=== PATIENT | female | born 1990 | race Caucasian/White ===

== ENCOUNTER 2019-06-26 17:33 | Outpatient (REF) | payer OTHER, SELFPAY ==
--- NOTE | 2019-06-26 16:20 | PAPFT_PTH ---
PATIENT: Yolanda Mcneil LOC: [facility] U#:[id number] AGE/SX: 29/F ROOM: RE06/26/[address]: Jeff Maldonado RN : 1990 BED: DIS: 06/26/2019 SPEC #: [id number] RECD: 06/26/19 17:40 STATUS: RODERICK IVY #: [id number] LIZBETH: 06/26/19 16:[address]: Jeff Maldonado DEPT: [facility] Cytology RECD BY: Sully Ardon ENTERED: 06/26/19 17:40 SP TYPE: PAPFT OT DR: Miroslava Clifton MD Tissues: 1 - CX/ENDOCX FOR PAP SMEARS Procedures: PAP THIN PREP/[facility] Screening Comments: [id number]
== END 2019-06-26 17:53 ==
LOC: LBN 17:33
PROVIDERS: PCP Family Medicine; Visit Provider Advanced Practice Midwife
DX: Z12.4 Encounter for screening for malignant neoplasm of cervix (principal)
CPT/HCPCS: 88142

== ENCOUNTER 2022-01-25 16:17 | Outpatient (REF) | payer BC, SELFPAY ==
--- NOTE | 2022-01-25 15:50 | PAPFT_PTH ---
PATIENT: Yolanda Mcneil LOC: [facility] U#:[id number] AGE/SX: 31/F ROOM: RE01/25/[address]: Tessa Knapp CNM : 1990 BED: DIS: 01/25/2022 SPEC #: [id number] RECD: 01/25/22 16:31 STATUS: RODERICK REQ #: [id number] LIZBETH: 01/25/22 15:[address]: Tessa Knapp DEPT: [facility] Cytology RECD BY: Sully Ardon ENTERED: 01/25/22 16:31 SP TYPE: PAPFT OTHR DR: Unknown,Unknown Tissues: 1 - CX/ENDOCX FOR PAP SMEARS Procedures: PAP THIN PREP/UVM Screening HPV DNA PROBE Comments: [id number]
[2022-01-25 18:58] LABS: *AMPHETAMINES SCREEN URINE Negative (Negative); *BARBITURATES SCREEN URINE Negative (Negative); *BENZODIAZEPINES SCREEN URINE Negative (Negative); Cannabinoids THC Negative (Negative); Cocaine Screen,Urine Negative (Negative); METHADONE URINE SCREEN Negative (Negative); OPIATES URINE SCREEN Negative (Negative); Tricyclic Antidepressants Negative (Negative)
[2022-02-02 10:32] LABS: Buprenorphine Negative ng/mL (Cutoff: 5.0); Norbuprenorphine Negative ng/mL (Cutoff: 2.5)
== END 2022-01-25 16:18 | disposition home or self-care (01) ==
LOC: LBN 16:17
PROVIDERS: Visit Provider Advanced Practice Midwife
DX: Z34.91 Encounter for supervision of normal pregnancy, unspecified, first trimester (principal); Z12.4 Encounter for screening for malignant neoplasm of cervix; Z11.51 Encounter for screening for human papillomavirus (HPV)
CPT/HCPCS: 80307; 88142; 87086; 87624

== ENCOUNTER 2022-01-25 18:30 | Outpatient (REF) | payer BC, SELFPAY ==
[2022-01-27 15:26] LABS: Chlamydia Result Negative (Negative); GC Result Negative (Negative)
== END 2022-01-25 18:31 | disposition home or self-care (01) ==
LOC: LBN 18:30
PROVIDERS: Visit Provider Advanced Practice Midwife
DX: Z34.91 Encounter for supervision of normal pregnancy, unspecified, first trimester (principal)
CPT/HCPCS: 87491; 87591

== ENCOUNTER 2022-01-31 04:18 | Outpatient (CLI) | payer BC, SELFPAY ==
[2022-01-31 10:26] LABS: Abs Immature Grans 0.04 10^3/uL (0.0-0.06); Absolute Basophil Count 0.01 10^3/uL (0.0-0.2); Absolute Eosinophil Count 0.07 10^3/uL (0.0-0.7); Absolute Lymphocyte Count 1.98 10^3/uL (1.2-3.4); Absolute Monocyte Count 0.52 10^3/uL (0.1-0.8); Absolute Neutrophil Count 7.69 10^3/uL (1.2-6.7); Basophils % 0.1; Eosinophils % 0.7; HCT 37.9 % (36.0-46.0); HGB 12.8 g/dL (11.2-15.7); Immature Grans % 0.4; Lymphocytes % 19.2; MCH 28.5 pg (27.0-33.0); MCHC 33.8 % (32.0-36.0); MCV 84.4 fL (80-95); MPV 8.9 fL (8.0-11.0); Neutrophils % 74.6; Nucleated RBC 0 %; Platelet Count 291 10^3/uL (130-400); RBC 4.49 10^6/uL (3.93-5.22); RDW 12.7 % (11.7-14.6); RDW-SD 38.5 fL; WBC 10.31 10^3/uL (4.4-10.8)
[2022-01-31 10:43] LABS: Glucose,1 Hr (Glucola) 69 mg/dL (80-140)
[2022-02-01 09:37] LABS: Hepatitis B Surface Ag Negative (Negative)
[2022-02-01 10:21] LABS: Hepatitis C Ab w Rflx HCV PCR Negative (Negative)
[2022-02-01 10:27] LABS: Rubella IgG Ab (UVM) Positive (See Note); Varicella IgG Antibody Positive (See Note)
[2022-02-01 10:58] LABS: HIV-1/2 Ag & Ab Screen Negative (Negative)
[2022-02-01 20:16] LABS: Syphilis IgG w/Reflex Nonreactive (Nonreactive)
== END 2022-01-31 04:19 | disposition home or self-care (01) ==
LOC: LBO 04:19
PROVIDERS: Visit Provider Advanced Practice Midwife
DX: O30.041 Twin pregnancy, dichorionic/diamniotic, first trimester (principal); Z3A.13 13 weeks gestation of pregnancy
CPT/HCPCS: 36415; 82950; 86787; 86803; 86850; 86900; 86901; 87340; 87389; 85025; 86762; 86780

== ENCOUNTER 2022-02-22 12:36 | Outpatient (CLI) | payer BC, SELFPAY ==
[2022-02-22 13:54] LABS: FREE T4 0.79 ng/dL (0.76-1.46)
== END 2022-02-22 12:37 | disposition home or self-care (01) ==
LOC: LBO 12:38
PROVIDERS: Visit Provider Advanced Practice Midwife
DX: F41.9 Anxiety disorder, unspecified (principal); Z34.92 Encounter for supervision of normal pregnancy, unspecified, second trimester
CPT/HCPCS: 36415; 84439; 84443

== ENCOUNTER 2022-05-09 02:32 | Outpatient (CLI) | payer BC, SELFPAY ==
[2022-05-09 17:19] LABS: Glucose,1 Hr (Glucola) 121 mg/dL (80-140)
== END 2022-05-09 02:33 | disposition home or self-care (01) ==
PROVIDERS: Visit Provider Obstetrics & Gynecology
DX: Z34.92 Encounter for supervision of normal pregnancy, unspecified, second trimester (principal); Z3A.27 27 weeks gestation of pregnancy
CPT/HCPCS: 36415; 82950

== ENCOUNTER 2022-07-11 14:54 | Outpatient (CLI) | payer BC, SELFPAY ==
[2022-07-11 16:04] VITALS: BP 133/82; PULSE 101; TEMP 36.9
[2022-07-11 16:05] VITALS: BP 133/82; PULSE 101
[2022-07-11 16:24] VITALS: BP 133/82; PULSE 101; TEMP 36.9
--- NOTE | 2022-07-11 16:36 | W.OBNST ---
Date of service: 07/11/22 Time of Service: 16:25 NST Evaluation Reason for NST Reasons for Nonstress Test: LABOR Reason for NST Other: rule out labor Gestational Age Gestational Age in Weeks and Days: 36 Weeks and 0Days Test and Monitor Explained Test/Monitor Explained: Test Explained, Monitor Explained and Patient Verbalized Understanding Vital Signs Blood Pressure: 133/82 Pulse: 101 Temperature: 98.4 F NST Information Date on Monitor: 07/11/22 Time on Monitor: 16:00 Date off Monitor: 07/11/22 Time off Monitor: 16:20 Total Time on Monitor: 20 NST Interventions: PO Hydration and Reposition Patient Contraction Frequency: 3-5 NST Evaluation Patient States Movement: Present FHR Baseline: 140 Variability: Moderate 6-25 bpm Accelerations: 15x15 Decelerations: None NST Results: Reactive NST Evaluation Baby B Patient States Movement: Present FHR Baseline: 120 Variability: Moderate 6-25 bpm Accelerations: 15x15 Decelerations: None NST Results: Reactive Note NST Note Note: Yolanda presents for NST due to irregular mild contractions most of today. No LOF or vaginal bleeding. Babies have been active. NST is reactive for both baby A and baby B. Has US tomorrow and office appointment 07/14. Reviewed signs of labor and and when to call. VE closed/70%/baby A breech -3. KH NST Reviewed and Verified by: Tessa Knapp
[2022-07-11 16:38] VITALS: BP 133/82; PULSE 101; TEMP 36.9
== END 2022-07-11 17:33 | disposition home or self-care (01) ==
LOC: BCD 15:32 → OBS 15:35
PROVIDERS: Visit Provider Advanced Practice Midwife
DX: O60.03 Preterm labor without delivery, third trimester (principal); O30.043 Twin pregnancy, dichorionic/diamniotic, third trimester; Z3A.36 36 weeks gestation of pregnancy
CPT/HCPCS: 59025; 87081

== ENCOUNTER 2022-07-14 01:57 | Outpatient (RCR) | payer BC, SELFPAY ==
--- NOTE | 2022-07-14 14:15 | HOLTER_ITS ---
APPROVED REPORT Conclusion This is a 24-hour Holter monitor ordered for tachycardia Rhythm throughout was sinus. Average heart rate was 89. Minimum was 58, maximum 133 There were very rare isolated premature ventricular contractions There were no supraventricular dysrhythmias, no atrial fibrillation, no high-grade AV block no pauses greater than 3 seconds
== END 2022-07-26 23:59 | disposition home or self-care (01) ==
LOC: RT 01:57
PROVIDERS: Visit Provider Advanced Practice Midwife
DX: R00.0 Tachycardia, unspecified (principal); O99.413 Diseases of the circulatory system complicating pregnancy, third trimester; O30.043 Twin pregnancy, dichorionic/diamniotic, third trimester; Z3A.36 36 weeks gestation of pregnancy
CPT/HCPCS: 93225; 93226

== ENCOUNTER 2022-07-21 12:04 | Outpatient (CLI) | payer BC, SELFPAY ==
[2022-07-21 12:57] VITALS: BP 131/77; PULSE 85
[2022-07-21 13:48] VITALS: BP 131/77; PULSE 85; TEMP 36.9
--- NOTE | 2022-07-21 13:59 | W.OBNST ---
Date of service: 07/21/22 Time of Service: 12:45 NST Evaluation Reason for NST Reasons for Nonstress Test: OTHER, SEE COMMENT Reason for NST Other: Twins Gestational Age Gestational Age in Weeks and Days: 37 Weeks and 3Days Test and Monitor Explained Test/Monitor Explained: Test Explained, Monitor Explained and Patient Verbalized Understanding Vital Signs Blood Pressure: 131/77 Pulse: 85 Temperature: 98.4 F NST Information Date on Monitor: 07/21/22 Time on Monitor: 12:36 Date off Monitor: 07/21/22 Time off Monitor: 13:02 Total Time on Monitor: 26 NST Interventions: None Contraction Frequency: Occasional NST Evaluation Patient States Movement: Present FHR Baseline: 135 Variability: Moderate 6-25 bpm Accelerations: 15x15 Decelerations: None NST Results: Reactive NST Evaluation Baby B Patient States Movement: Present FHR Baseline: 125 Variability: Moderate 6-25 bpm Accelerations: 15x15 Decelerations: None NST Results: Reactive Note NST Note Note: NST is reactive and reassuring for both baby A and baby B. Dr. Kaminski met with patient for bedside US just prior to NST to review postions. At this time babies are not in favorable position for vaginal . Yolanda will return Sunday07/24/22 for another US and NST and then planned C/S on 07/26/22 for section unless there is a position change that is favorable for induction prior to that time. NST Reviewed and Verified by: Tessa Knapp
[2022-07-21 14:01] VITALS: BP 131/77; PULSE 85; TEMP 36.9
== END 2022-07-21 13:10 | disposition home or self-care (01) ==
LOC: BCD 12:05 → OBS 12:30
PROVIDERS: Visit Provider Advanced Practice Midwife
DX: O30.043 Twin pregnancy, dichorionic/diamniotic, third trimester (principal); Z3A.37 37 weeks gestation of pregnancy
CPT/HCPCS: 59025

== ENCOUNTER 2022-07-24 06:22 | Outpatient (CLI) | payer BC, SELFPAY ==
[2022-07-24 12:19] VITALS: BP 133/81; PULSE 88; TEMP 36.7
--- NOTE | 2022-07-24 13:12 | W.OBNST ---
Date of service: 07/24/22 Time of Service: 13:00 NST Evaluation Reason for NST Reasons for Nonstress Test: MULTIPLE GESTATION Gestational Age Gestational Age in Weeks and Days: 37 Weeks and 6Days Test and Monitor Explained Test/Monitor Explained: Test Explained, Monitor Explained and Patient Verbalized Understanding Vital Signs Blood Pressure: 133/81 Pulse: 88 Temperature: 98.1 F NST Information Date on Monitor: 07/24/22 Time on Monitor: 11:56 Date off Monitor: 07/24/22 Time off Monitor: 12:18 Total Time on Monitor: 22 NST Interventions: Notify Provider and Other Contraction Frequency: none NST Evaluation Patient States Movement: Present FHR Baseline: 135 Variability: Moderate 6-25 bpm Accelerations: 15x15 Decelerations: None NST Results: Reactive NST Evaluation Baby B Patient States Movement: Present FHR Baseline: 140 Variability: Moderate 6-25 bpm Accelerations: 15x15 Decelerations: None NST Results: Reactive Note NST Note Note: NST is reactive and reassuring for both babies. C/S planned for 07/26 due to baby A not being in breech or cephalic presentation but with body across cervix. Patient is doing well with asking questions and preparing for C/S. NST Reviewed and Verified by: Tessa Knapp
[2022-07-24 13:14] VITALS: BP 133/81; PULSE 88; TEMP 36.7
[2022-07-24 13:21] LABS: Abs Immature Grans 0.04 10^3/uL (0.0-0.06); Absolute Basophil Count 0.01 10^3/uL (0.0-0.2); Absolute Eosinophil Count 0.06 10^3/uL (0.0-0.7); Absolute Lymphocyte Count 1.72 10^3/uL (1.2-3.4); Absolute Monocyte Count 0.49 10^3/uL (0.1-0.8); Absolute Neutrophil Count 5.44 10^3/uL (1.2-6.7); Basophils % 0.1; Eosinophils % 0.8; HCT 38.6 % (36.0-46.0); HGB 12.9 g/dL (11.2-15.7); Immature Grans % 0.5; Lymphocytes % 22.2; MCH 27.7 pg (27.0-33.0); MCHC 33.4 % (32.0-36.0); MCV 83 fL (80-95); MPV 10.2 fL (8.0-11.0); Monocytes % 6.3; Neutrophils % 70.1; Platelet Count 236 10^3/uL (130-400); RBC 4.65 10^6/uL (3.93-5.22); RDW 14.4 % (11.7-14.6); RDW-SD 42.4 fL; WBC 7.76 10^3/uL (4.4-10.8)
[2022-07-24 13:28] LABS: Source Nasal/Nares
[2022-07-24 15:28] LABS: COVID-19 PCR Negative (Negative)
== END 2022-07-24 13:20 | disposition home or self-care (01) ==
LOC: PRC 06:24 → BCD 06:30 → OBS 12:04
PROVIDERS: Visit Provider Obstetrics & Gynecology
DX: O30.043 Twin pregnancy, dichorionic/diamniotic, third trimester (principal); Z3A.37 37 weeks gestation of pregnancy; Z20.822 Contact with and (suspected) exposure to COVID-19; Z01.818 Encounter for other preprocedural examination; Z01.812 Encounter for preprocedural laboratory examination
CPT/HCPCS: 59025; 36415; 86850; 86900; 86901; 87635; 85025

== ENCOUNTER 2022-07-26 06:00 | Inpatient (IN) | payer BC, SELFPAY ==
[2022-07-26] VITALS (10 sets, daily range): BP systolic 105–129; BP diastolic 65–82; PULSE 57–99; RESP 16–20; TEMP 36.3–36.7; O2SAT 0–100; BMI 35.1
--- NOTE | 2022-07-26 06:58 | ANES.PREOP_ITS ---
General Info Date of Service Date Performed: 07/26/22 Height: 5 ft 8 in Weight: 104.78 kg Body Mass Index (BMI): 35.1 Surgical Procedure: Operation Date: 07/26/22 07:40 Proposed Procedure Side Surgeon p Section Vanesa Kaminski DO Meds Allergies and Home Medications Allergies Allergy/AdvReac Type Severity Reaction Status Date / Time Sulfa (Sulfonamide Allergy Mild Verified 07/14/22 14:29 Antibiotics) amoxicillin trihydrate AdvReac Unknown VOMITTING Verified 07/14/22 14:29 [From Augmentin] potassium clavulanate AdvReac Unknown VOMITTING Verified 07/14/22 14:29 [From Augmentin] Home Medication Medication Instructions Recorded aspirin 81 mg tablet,delayed 81 mg PO DAILY 02/22/22 release (Adult Low Dose Aspirin) docusate sodium 100 mg capsule 100 mg PO DAILY PRN 02/22/22 (Colace) melatonin 3 mg capsule 3 mg PO HS PRN 02/22/22 propranolol 10 mg tablet 10 mg PO DAILY PRN 02/22/22 sertraline 50 mg tablet 75 mg PO DAILY #30 tabs 04/27/22 lorazepam 0.5 mg tablet (Ativan) 0.5 mg PO BID PRN anxiety #5 tabs 05/09/22 famotidine 20 mg tablet 20 mg PO BID 06/12/22 magnesium 250 mg tablet 250 mg PO .COMPLEX 06/12/22 vits no.126-ferrous fum 1 tab PO DAILY 07/14/22 28 mg iron-folic acid 800 mcg tablet (Classic ) Current Visit Medications: Current Medications Generic Name Dose Route Start Last Admin Trade Name Freq PRN Reason Stop Dose Admin Citric Acid/Sodium Citrate 30 ml 07/26/22 07:00 Sodium Citrate 30 Ml Cup PO PREOP HETAL Sodium Chloride 500 mls @ 0 mls/hr 07/26/22 06:32 Saline 500ml Bag IV PRN PRN As Directed Ringer's Solution 1,000 mls @ 200 mls/hr 07/26/22 06:45 IV INFUSION HETAL Cefazolin Sodium/Dextrose 2 gm in 50 mls @ 100 mls/hr 07/26/22 06:45 Ancef Duplex IVPB PREOP HETAL Azithromycin 500 mg/ Sodium 250 mls @ 250 mls/hr 07/26/22 06:45 Chloride IVPB PREOP HETAL IV Miscellaneous Supplies 1 each 07/26/22 06:45 Iv Access IV DIRECTED HETAL Sodium Chloride 0 ml 07/26/22 06:32 Normal Saline Flush 10 Ml Syr IVP PRN PRN PFSH Active Problems Active Problems: Problem Status Onset Code Tachycardia with heart rate 100-120 beats per minute R00.0 Twin , dichorionic/diamniotic, unspecified trimester O30.049 History of depression, currently O99.891, Z86.59 Depression F32.A Z34.90 Dichorionic diamniotic twin O30.049 Acid reflux K21.9 Anxiety 03/06/14 F41.9 Medical History Medical History Oral contraceptive use Surgical History Surgical History (Updated 07/26/20 @ 15:38 by Jie Bush NP) S/P tonsillectomy and adenoidectomy (~2006) [place] teeth extracted Tobacco Smoking/Tobacco Use Status: Never Passive smoking exposure: No Alcohol Alcohol Intake: never Substance Use Substance use: Never Substance use type: does not use Prental History History 2 Para 1 Hx # Term Pregnancies 1 Multiple births 0 Hx # Pregnancies 0 Ectopic pregnancies 0 AB induced 0 Hx Number of Living Children 1 AB spontaneous 0 Past Pregnancies Del. Date GA/Weeks # Preg Succ Route Wgt Sex Labor Lgth Anesth esia Location [facility] [place] 03/16/14 40 No vaginal 2863.302 g Female 8 hours regional [place] Delivery Date: 03/16/14 Last Updated by: Tessa Gurrola CNM labor after a fall, [place] [facility] [place] with stripping of membranes. Alaura. difficulty. frequent vomiting. Vital Signs and Lab Results Vital Signs Most Recent Vital Signs in EMR: Most Recent Vital Signs Temp Pulse Resp BP 36.6 C 87 16 129/82 07/26/22 06:11 07/26/22 06:11 07/26/22 06:11 07/26/22 06:11 Lab Results Blood Type / Crossmatch: Patient ABO/Rh O Positive 07/24/22 Antibody Screen NEGATIVE 07/24/22 Complete Blood Count: White Blood Count 7.76 10^3/uL (4.4-10.8) 07/24/22 12:50 Red Blood Count 4.65 10^6/uL (3.93-5.22) 07/24/22 12:50 Hemoglobin 12.9 g/dL (11.2-15.7) 07/24/22 12:50 Hematocrit 38.6 % (36.0-46.0) 07/24/22 12:50 Platelet Count 236 10^3/uL (130-400) 07/24/22 12:50 Complete Metabolic Panel: No Data to Display Liver Function Panel: No Data to Display Coagulation Panel: No Data to Display Cardiac Panel: No Data to Display Arterial Blood Gas: No Data to Display Venous Blood Gas: No Data to Display Pancreas Panel: No Data to Display Thyroid Panel: No Data to Display Infectious Disease: Coronavirus (COVID-19)(PCR) Negative (Negative) 07/24/22 12:40 Coronavirus 2019 Source Nasal/Nares 07/24/22 12:40 Blood Cultures: No Data to Display Toxicology Panel: No Data to Display Panel: No Data to Display Anesthesia Assessment and Plan Anesthesia History Personal History: No History of Anesthesia Complications Family History: No Family History of Anesthesia Complications Exercise Tolerance Exercise Tolerance: Metabolic Equivalents>4 Pertinent Negatives Pertinent Negatives: No Major Cardiovascular Symptoms or Complaints and No Major Pulmonary Symptoms or Complaints Cardiac & Pulmonary Exam Cardiac Exam: Normal S1/S2 Heart Sounds Pulmonary Exam: Clear Bilateral Breath Sounds Implantable Cardiac Device Does patient have a Pacemaker or an ICD?: No Airway Exam Known Difficult Airway: No Mallampati Class: 2 Mouth Opening: Normal (> 3cm) Thyromental Distance: Greater than 3 cm Neck Range of Motion: Full ROM Neck Circumference: Normal Teeth Condition: Normal Dentition ASA Classification ASA Score: ASA 2 Emergency Case?: No NPO Status NPO Status: NPO Clears >2 hours, Solids >8 hours and Full Stomach Status Status: Confirmed Anesthesia Plan Resuscitation Status: Full Code Anesthesia Technique: Spinal Anesthesia Airway Planned: Natural Airway Monitors Used: Standard Monitors Preoperative Comments:: Intrathecal Narcotics
[2022-07-26] MEDS: AZITHROMYCIN 500 MG in Normal Saline 250 ML 250 MG IVPB (07:05)
[2022-07-26] MEDS: Sodium Citrate 30 ML CUP PO (07:07)
[2022-07-26] MEDS: ceFAZolin 2 GM/50 ML BAG IVPB (07:39)
[2022-07-26] MEDS: Lactated Ringers 1,000 ML 200 ML IV ×2 (07:39→08:45)
--- NOTE | 2022-07-26 08:52 | PLAC_PTH ---
PATIENT: Yolanda Mcneil LOC: [facility] U#:[id number] AGE/SX: 32/F ROOM: OBS.300 RE07/26/[address]: Vanesa Kaminski DO : 1990 BED: A DIS: 07/28/2022 SPEC #: [id number] RECD: 07/26/22 12:50 STATUS: SOUT REQ #: [id number] LIZBETH: 07/26/22 08:[address]: Vanesa Kaminski DEPT: Surgical Specimen RECD BY: Sully Ardon ENTERED: 07/26/22 12:51 SP TYPE: PLAC OTHR DR: Unknown,Unknown Tissues: 1 - PLACENTA (3RD TRIMESTER) Procedures: IMMUNOPEROXIDASE STAIN GROSS AND MICRO LEVEL 5 Comments: [id number]
--- NOTE | 2022-07-26 08:52 | W.PM.OBCSECT ---
Date of service: 07/26/22 Time of Service: 08:52 Operative Note Operative Note Delivery Method: Scheduled and Primary NTSV>37 Weeks: No DATE OF PROCEDURE: 07/26/22 PRE-OP DIAGNOSES: at 38 weeks and 1 day. Di/Di twins. A transverse, B transvse PROCEDURE: Primary low-transverse section SURGEON: Vanesa Kaminski Assisting Surgeon: Meliza Zhu Estimated blood loss (mL): 600 Pathology: other (Placenta for exam. Clamp on cord B) Complications: None Patient was transported to: floor Patient's condition: stable Indications: at 38 weeks and 2 days, Di Di twins, transverse/transverse lie Findings: Normal-appearing tubes, ovaries, uterus. Diamniotic dichorionic placentas. Delivery of twin a, male infant, transverse lie converted to breech presentation. Twin B, female infant, transverse converted to vertex, occiput posterior position. Three-vessel cords on both twins Procedure Description: After repeat ultrasound was performed at the bedside this morning confirming a transverse, transverse lie for twin B and a, decision was made to proceed with section at 38 weeks and 1 day. Risk benefits and alternatives of section have been explained in full informed consent was obtained. She was taken the operating suite with an IV running where she is placed in the seated position and spinal anesthesia administered, tested, and found to be adequate. She was then placed in the dorsal supine position with leftward tilt. heart tones were auscultated for a and B at 160 and 120 respectively. Vaginal preparation and Johnson catheter was inserted and remainder of prep and drape was performed. Patient was found to have adequate analgesia with her spinal and a Pfannenstiel skin incision was made. Incision was carried down to the underlying fascia which was nicked in the midline and extended laterally. The rectus muscles were identified split in the middle and the peritoneum identified tented up and entered sharply. The peritoneal incision was then extended superiorly and inferiorly and the bladder blade was inserted. The vesicouterine peritoneum was identified tented up and entered sharply creating a bladder flap. The bladder blade was reinserted and a low transverse uterine incision made. There was artificial rupture of membranes for twin A which was clear. The fetus was in the transverse position and converted to a breech extraction. The breech was delivered through the incision to the point that the scapulas could be seen. The was rotated both clockwise and counterclockwise for delivery of the arms and the head delivered atraumatically. Three-vessel cord was noted clamped x2 and cut and the baby was handed off to the waiting production generalist. At this point there was artificial rupture of membranes for twin babies amniotic membranes for clear fluid. Previous transverse lie was converted to a vertex position in the occiput posterior position. The vertex was delivered atraumatically. Three-vessel cord was noted clamped x2 and again cut and the was handed off to the waiting production generalist. Cord blood samples for both cord a and B were obtained and a clamp was placed on cord B. The placenta was or manually expressed from the uterus and found to be intact. The uterus then exteriorized and cleared of all clot and debris. Uterine incision was closed using 0 Monocryl suture in a 2 layer closure. First layer being a running locked, second being imbricating. Inspection of the uterine incision noted good hemostasis. Tubes and ovaries appeared normal. The uterus was then returned to the abdomen. The uterine incision was again reinspected and found to be hemostatic. The abdomen was cleared of all clot and debris with copious amounts of normal saline. The fascial incision was then closed using 0 Vicryl suture in a running fashion. Subcutaneous tissue irrigated with copious amounts of normal saline and reapproximated with 3-0 Vicryl in a simple interrupted fashion. Skin edge was reapproximated with 4-0 undyed Monocryl in subcuticular fashion and Steri-Strips were placed. Sterile dressing was placed and the uterus was found to be firm and at the umbilicus. Patient was returned to the center in stable condition with a Johnson catheter draining clear yellow urine. Findings: Delivery of twin gestation A being a transverse converted to breech presentation, B being in a transverse converted to vertex presentation. Normal tubes, ovaries, uterus. Placenta, diamniotic dichorionic. Placenta was sent for examination. Pathology: Placenta for examination Complications: None apparent Fluids: Crystalloid per anesthesia EBL: 600 mL
[2022-07-26] MEDS: Lactated Ringers 1,000 ML 120 ML IV ×2 (10:23→15:24)
--- NOTE | 2022-07-26 11:42 | W.ANESPOSTOP ---
Postoperative Evaluation Date, Time and Location Date Performed: 07/26/22 Time Performed: 11:00 Patient Location: Obstetrics Vital Signs Most Recent Imported Vital Signs: Most Recent Vital Signs Temp Pulse Resp BP Pulse Ox 36.3 C L 71 20 118/71 100 07/26/22 09:20 07/26/22 10:00 07/26/22 09:30 07/26/22 10:00 07/26/22 10:00 Pain Score Most Recent Pain Score: Most Recent Pain Score Pain Level [Bilateral Abdomen] 0 07/26/22 10:00 Assessment Mental Status: Awake (Alert & Oriented to Patient Baseline) Airway and Respiratory Function: Patent airway with normal (patient baseline) respiratory exam Cardiovascular Function: Hemodynamically Stable Hydration Status: Adequately Hydrated Nausea & Vomiting: No Nausea or Vomiting Pain: Pt. Denies Any Pain Peripheral Nerve Block: Regional nerve block not resolved at time of post operative discharge
[2022-07-26] MEDS: Oxytocin/Normal Saline 30 UNIT/500 ML BAG 125 UNITS IV (11:55)
[2022-07-26] MEDS: Ketorolac 30 MG/ML VIAL IVP ×2 (15:14→23:51)
[2022-07-26] MEDS: Normal Saline Flush 10 ML SYR IVP (15:17)
--- NOTE | 2022-07-26 17:00 | W.PM.OBPNV1 ---
Date of service: 07/26/22 Time of Service: 17:00 Subjective Subjective Interval history: Doing well, post op. Pain well controlled. Bleeding improved. Routine post op care. Exam Physical Exam Vital signs: Temp Pulse Resp BP Pulse Ox 98.1 F 68 20 108/68 99 07/26/22 12:10 07/26/22 13:45 07/26/22 13:45 07/26/22 13:45 07/26/22 13:45 Vital Signs Reviewed: Yes
[2022-07-26] MEDS: NALBUPHINE 5 MG in Normal Saline 50 ML 100 MG IVPB (17:27)
[2022-07-26] MEDS: Sertraline 100 MG TAB PO (18:47)
[2022-07-26] MEDS: Acetaminophen 325 MG TAB 650 MG PO (23:50)
[2022-07-27] VITALS: BP 104/65; PULSE 75; RESP 18; TEMP 37.1
[2022-07-27 06:21] LABS: Abs Immature Grans 0.09 10^3/uL (0.0-0.06); Absolute Basophil Count 0.02 10^3/uL (0.0-0.2); Absolute Eosinophil Count 0.05 10^3/uL (0.0-0.7); Absolute Lymphocyte Count 2.02 10^3/uL (1.2-3.4); Basophils % 0.2; Eosinophils % 0.4; HCT 36.8 % (36.0-46.0); Immature Grans % 0.7; Lymphocytes % 16.2; MCH 27.5 pg (27.0-33.0); MCHC 32.6 % (32.0-36.0); MCV 84 fL (80-95); MPV 10.3 fL (8.0-11.0); Monocytes % 5.5; Platelet Count 198 10^3/uL (130-400); RBC 4.37 10^6/uL (3.93-5.22); RDW 14.4 % (11.7-14.6); RDW-SD 43.9 fL; WBC 12.47 10^3/uL (4.4-10.8)
[2022-07-27 06:28] LABS: Absolute Monocyte Count 0.69 10^3/uL (0.1-0.8)
[2022-07-27] MEDS: Ibuprofen 600 MG TAB PO ×3 (06:28→19:08)
[2022-07-27 09:05] VITALS: BP 121/76; PULSE 75; RESP 17; TEMP 36.9; O2SAT 98
[2022-07-27] MEDS: Acetaminophen 325 MG TAB 650 MG PO ×3 (09:28→19:08)
[2022-07-27] MEDS: Sertraline 100 MG TAB PO (09:28)
[2022-07-27] MEDS: Docusate Sodium 100 MG CAP PO (09:28)
--- NOTE | 2022-07-27 11:11 | W.PM.OBPNV1 ---
Date of service: 07/27/22 Time of Service: 11:11 Assessment and Plan Assessment and plan (1) Status post primary low transverse section: Status: Acute Assessment and plan: Postop day #1 status post primary low transverse section for breech presentation at 38 weeks and 1 day. Babies were transverse transverse. Overall she is doing well. Vital signs are stable. She is tolerating a regular diet. Hemoglobin is stable. circumcision for her baby boy will be performed today. I would anticipate discharge home in the next 24 to 48 hours if all is well with both her and her infants. All questions were answered today. Exam Physical Exam Vital signs: Temp Pulse Resp BP Pulse Ox 98.4 F 75 17 121/76 98 07/27/22 09:05 07/27/22 09:05 07/27/22 09:05 07/27/22 09:05 07/27/22 09:05 Vital Signs Reviewed: Yes Constitutional Comments: Patient seen and examined this morning. Overall she is doing well. Her pain is well controlled. She is passing gas. She states that overall her experience was better than what she had anticipated with her section. She is ambulatory and tolerating regular diet. She will be getting in the shower this morning. Her vital signs are stable. Her postoperative hemoglobin is also stable. HEENT Exam HEENT Exam: Normal Neck Exam Neck Exam: Normal Abdominal Exam Abdomen: Tender (Appropriate for postop) Extremities Exam Extremity Exam: Edema (1+, bilateral) Results Hemoglobin/Hematocrit: Hgb 12.0 g/dL (11.2-15.7) 07/27/22 06:12 Hct 36.8 % (36.0-46.0) 07/27/22 06:12 Abnormal Lab Findings: Abnormal Labs 07/27/22 06:12 WBC 12.47 H Absolute Neutrophils 9.60 H
[2022-07-27 13:00] VITALS: BP 111/74; PULSE 89; RESP 18; TEMP 36.3; O2SAT 98
[2022-07-27 16:43] VITALS: BP 114/65; PULSE 66; RESP 18; TEMP 36.7; O2SAT 98
[2022-07-27 22:00] VITALS: BP 115/68; PULSE 74; RESP 18; TEMP 36.7
[2022-07-28] MEDS: Acetaminophen 325 MG TAB 650 MG PO ×3 (03:45→12:10)
[2022-07-28] MEDS: Ibuprofen 600 MG TAB PO ×2 (03:46→12:11)
--- NOTE | 2022-07-28 06:38 | W.PM.OBPNV1 ---
Date of service: 07/28/22 Time of Service: 06:38 Assessment and Plan Assessment and plan (1) Status post primary low transverse section: Status: Acute Assessment and plan: Post op day # 2. Doing well. D/C home today Subjective Subjective Interval history: Doing well, desires D/C home today. Breast feeding and supplementing baby status: Doing well, Nursing well and Supplemental feeding going well Exam Physical Exam Vital signs: Temp Pulse Resp BP Pulse Ox 98.1 F 74 18 115/68 98 07/27/22 22:00 07/27/22 22:00 07/27/22 22:00 07/27/22 22:00 07/27/22 16:43 Vital Signs Reviewed: Yes Notable Details: None Constitutional Constitutional: no acute distress HEENT Exam HEENT Exam: Normal Respiratory Exam Respiratory Exam: Normal Cardiovascular Exam Cardiovascular Exam: Normal Abdominal Exam Abdomen: Tender Comments: Soft, non-distended Fundal Exam Fundus: Below Umbilicus and Firm Extremities Exam Extremity Exam: Normal and Edema (1+); negative Calf Tenderness Skin Exam Skin Exam: Normal Neurological Exam Neurological Exam: Normal Psychiatric Exam Psychiatric Exam: Normal Results Hemoglobin/Hematocrit: Hgb 12.0 g/dL (11.2-15.7) 07/27/22 06:12 Hct 36.8 % (36.0-46.0) 07/27/22 06:12 Abnormal Lab Findings: Abnormal Labs 07/27/22 06:12 WBC 12.47 H Absolute Neutrophils 9.60 H
--- NOTE | 2022-07-28 06:48 | W.PM.OBDISCH ---
Date of service: 07/28/22 Time of Service: 06:48 DS: Diagnosis Discharge Diagnosis (1) Status post primary low transverse section: Status: Acute Asessment and Plan: Post op day # 2, doing well. D/C home Discharge Plan Disposition Patient Disposition: HOME Condition: Good Discharge Details Reason For Visit: Delivery Admit Date/Time: 07/26/22 06:00 Admit Provider: Vanesa Kaminski Attending Provider: Vanesa Kaminski Primary Care Provider: Unknown,Unknown Hospital Course Hospital Course: Patient had a primary low tranverse section at 38 1/7 weeks for twin gestation, malposition with transverse/transverse lie.Uncomplicated post operative care. Viable twind A-boy, circumsicion complete. B- Girl, doing well. D/C home, post op day #2. Stable., Follow up in 2 and 6 weeks Home Meds and New Rx's Prescriptions: New sertraline 100 mg tablet 100 mg PO DAILY Qty: 90 3RF oxycodone-acetaminophen [Percocet] 5-325 mg tablet 1 tab PO Q8H Qty: 7 0RF ibuprofen 800 mg tablet 800 mg PO Q8H PRNQty: 30 1RF Continued Classic 28 mg iron- 800 mcg tablet 1 tab PO DAILY propranolol 10 mg tablet 10 mg PO DAILY PRN Label Comments: for anxiety docusate sodium [Colace] 100 mg capsule 100 mg PO DAILY PRN Label Comments: pt reports taking 4-6x a week PRN melatonin 3 mg capsule 3 mg PO HS PRN famotidine 20 mg tablet 20 mg PO BID lorazepam [Ativan] 0.5 mg tablet 0.5 mg PO BID PRN (Reason: anxiety) Qty: 5 0RF Discontinued aspirin [Adult Low Dose Aspirin] 81 mg tablet,delayed release (DR/EC) 81 mg PO DAILY Label Comments: pt reports taken one daily alternating with 2 daily magnesium 250 mg tablet 250 mg PO .COMPLEX Rx Instructions: daily sertraline 50 mg tablet 75 mg PO DAILY Qty: 30 6RF Discharge Instructions Stand Alone Forms: BC Instructions, BC Discharge Instruc Activity:: pelvic rest x 6 weeks Equipment/Supplies:: No Equipment Needed Diet:: As Tolerated Discharge Orders Discharge Orders: Discharge Order (Routine); Ordered 07/28/22 Ordered By: Vanesa Kaminski OB:DS Summary Contraception Discussed Contraception Discussed: Yes Contraceptive Plan: Undecided, Infant Gender-Baby A: Male weight: 6 lb 5.942 oz Gender-Baby B: Female Weight-Baby B: 6 lb 1.003 oz Status at Discharge Functional status at discharge: independent ambulation Overall status at discharge: patient is progressing back to baseline Mental Status: mental status grossly normal Speech and Movement: speech and movement normal Mood: congruent mood Affect: normal affect Exam Physical Exam Vital signs: Temp Pulse Resp BP Pulse Ox 98.1 F 74 18 115/68 98 07/27/22 22:00 07/27/22 22:00 07/27/22 22:00 07/27/22 22:00 07/27/22 16:43 Narrative: See exam from progress note dated 07/28/2022 [facility] All Active Problems Status post primary low transverse section (Acute) Twin gestation, 38 weeks and 1 day, transverse transverse lie. Tachycardia with heart rate 100-120 beats per minute (Acute) Twin , dichorionic/diamniotic, unspecified trimester (Acute) History of depression, currently (Acute) Depression (Chronic) (Acute) Dichorionic diamniotic twin (Acute) Acid reflux (Chronic) Anxiety (Acute 03/06/14) Medical History Oral contraceptive use Surgical History S/P tonsillectomy and adenoidectomy (~2006) [place] teeth extracted Family History Father Hypertension Cancer HPV throat cancer Brother Seizure disorder Maternal Grandmother Breast cancer Mother , 60 Diabetes Hypertension Cirrhosis age 60 Thyroid disease Depression Asthma Substance use disorder alcoholism Paternal Uncle Cancer passed age 80 from leukemia Social History Smoking/Tobacco Use Status: Never Smoking risk assessment performed?: Yes Alcohol Intake: never Drug use: Never Substance use type: does not use Do you feel safe at home: Yes Do you feel safe in your relationship?: Yes Female Reproductive History Menstrual control method: pills History History 2 Para 1 Hx # Term Pregnancies 1 Multiple births 0 Hx # Pregnancies 0 Ectopic pregnancies 0 AB induced 0 Hx Number of Living Children 1 AB spontaneous 0 Past Pregnancies Del. Date GA/Weeks # Preg Succ Route Wgt Sex Labor Lgth Anesthesia Location Prov Complic 03/16/14 40 No vaginal 6 lb 5 oz Female 8 hours [facility] Delivery Date: 03/16/14 Last Updated by: Tessa Gurrola CNM labor after a fall, transferred to [facility] [place]. AROM occurred with stripping of membranes. Alaura. difficulty. frequent vomiting. DS: Data Vitals/I&O Vitals and I&O: Vital Signs Temperature 98.1 F 07/27/22 22:00 Pulse 74 07/27/22 22:00 Pulse Rhythm Regular 07/27/22 09:00 Respiratory Rate 18 07/27/22 22:00 Blood Pressure 115/68 07/27/22 22:00 Blood Pressure Mean 83 07/27/22 22:00 Pulse Oximetry 98 07/27/22 16:43 Oxygen Delivery Method Room Air 07/26/22 06:11 Oxygen Flow Rate 0 07/26/22 06:11 Pain Level 3 07/28/22 03:46 Intake & Output 07/27/22 07/27/22 07/28/22 11:59 23:59 11:59 Output Total 2250 / 2800 550 / 2800 Balance -2250 / -2800 -550 / -2800 Output: Urine 2250 / 2800 550 / 2800 Other: Urine Color Yellow Pale Dark [place] Urine Appearance Clear Urine Odor Strong Voiding Methods Toilet
[2022-07-28] MEDS: Sertraline 100 MG TAB PO (08:20)
[2022-07-28] MEDS: Docusate Sodium 100 MG CAP PO (08:20)
[2022-07-28 08:35] VITALS: BP 115/68; PULSE 78; RESP 16; TEMP 36.6; O2SAT 97
== END 2022-07-28 13:15 | disposition home or self-care (01) | DRG 788 ==
PROVIDERS: Admitting Provider Obstetrics & Gynecology; Visit Provider Obstetrics & Gynecology
PROC: 10D00Z1 Extraction of Products of Conception, Low, Open Approach (ICD-10-PCS; CPT 59514; principal; 2022-07-26 07:30)
DX: O32.2XX1 Maternal care for transverse and oblique lie, fetus 1 (principal); Z37.2 Twins, both liveborn; O32.2XX2 Maternal care for transverse and oblique lie, fetus 2; O30.043 Twin pregnancy, dichorionic/diamniotic, third trimester; Z3A.38 38 weeks gestation of pregnancy
CPT/HCPCS: 59514; 85025; 88307; 88361; J0131; J0456; J0690; J1100; J1885; J2370; J2405; J3010; J3490

== ENCOUNTER 2023-10-04 11:59 | Outpatient (REF) | payer BC, SELFPAY ==
--- NOTE | 2023-10-04 11:15 | TONG_PTH ---
PATIENT: Yolanda Mcneil LOC: [facility] U#:[id number] AGE/SX: 33/F ROOM: RE10/04/[address]: Alex Mustafa MD : 1990 BED: DIS: 10/04/2023 SPEC #: [id number] RECD: 10/04/23 18:06 STATUS: RODERICK IVY #: [id number] LIZBETH: 10/04/23 11:[address]: Alex Mustafa DEPT: Surgical Specimen RECD BY: Sully Ardon ENTERED: 10/04/23 18:07 SP TYPE: FAHAD AGUILAR DR: Kirsten Mcfarlane NP Tissues: 1 - TONGUE BIOPSY Procedures: GROSS AND MICRO LEVEL 4 Comments: [id number]
== END 2023-10-04 12:00 | disposition home or self-care (01) ==
LOC: LBN 11:59
PROVIDERS: PCP Nurse Practitioner Family; Visit Provider Otolaryngology
DX: K14.8 Other diseases of tongue (principal)
CPT/HCPCS: 88305